=== PATIENT | female | born 1995 ===

== ENCOUNTER 2024-01-07 07:09 | Outpatient (CLI) | payer MEDICAID, SELFPAY ==
--- NOTE | 2024-01-07 07:15 | CRLHL7_ITS ---
For Patients: As a result of the Cures Act, medical imaging exams and procedure reports are released immediately into your electronic medical record. You may view this report before your referring provider. If you have questions, please contact your health care provider. INDICATION: First trimester scan, establish dates. COMPARISON: None. TECHNIQUE: Real-time blandon-scale imaging of the pelvis was performed. FINDINGS: Sonographic imaging demonstrates a single living intrauterine gestation. The embryo demonstrates a regular cardiac rate measuring 157 beats per minute. The embryo`s crown-rump length measurement of 3.7 cm corresponds to a gestational age of 10 weeks 4 days with a sonographic due date of 07/31/2024. There is a normal-appearing yolk sac. There are no gross abnormalities noted within the embryo at this early state of development. The gestational sac has a normal appearance. There is no evidence of a perigestational hemorrhage. The amount of fluid within the sac appears appropriate for gestational age. The cervix is closed. The myometrium appears normal. The ovaries are not visualized. There are no suspicious fluid collections noted in the cul-de-sac. IMPRESSION: Single living intrauterine with sonographic gestational age 10 weeks 4 days and sonographic due date of 07/31/2024. Dictated by Ayad Pires MD @ 01/07/2024 11:45:33 AM (Electronically Signed)
== END 2024-01-07 07:10 | disposition home or self-care (01) ==
LOC: US 07:12
PROVIDERS: Visit Provider Advanced Practice Midwife
DX: Z34.91 Encounter for supervision of normal pregnancy, unspecified, first trimester (principal); Z3A.10 10 weeks gestation of pregnancy
CPT/HCPCS: 76817; 86592; 86703; 86704; 86706; 86762; 86787; 86803; 86850; 86900; 86901; 87086; 87186; 87340; T1013

== ENCOUNTER 2024-02-04 09:24 | Outpatient (CLI) | payer BC, SELFPAY | END 2024-02-04 09:25 | disposition home or self-care (01) | LOC: NFLDREF 09:26 | PROVIDERS: Visit Provider Obstetrics & Gynecology | DX: O23.42 Unspecified infection of urinary tract in pregnancy, second trimester (principal) | CPT/HCPCS: 87086; 87186 ==

== ENCOUNTER 2024-02-19 11:52 | Outpatient (CLI) | payer BC, SELFPAY | END 2024-02-19 11:53 | disposition home or self-care (01) | PROVIDERS: Visit Provider Obstetrics & Gynecology | DX: O23.40 Unspecified infection of urinary tract in pregnancy, unspecified trimester (principal) | CPT/HCPCS: 87086 ==

== ENCOUNTER 2024-03-03 08:14 | Outpatient (CLI) | payer BC, SELFPAY ==
--- NOTE | 2024-03-03 08:15 | CRLHL7_ITS ---
For Patients: As a result of the Century Cures Act, medical imaging exams and procedure reports are released immediately into your electronic medical record. You may view this report before your referring provider. If you have questions, please contact your health care provider. INDICATION: Evaluate anatomy. COMPARISON: 01/07/2024 TECHNIQUE: Real time blandon scale imaging of the fetus was performed as well as color Doppler analysis of the umbilical vessels. FINDINGS: Sonographic imaging demonstrates a single living intrauterine gestation. Fetus demonstrates a regular cardiac rate of 139 beats per minute. Fetus has a breech position. The placenta lies anteriorly without evidence of placenta previa. Edge of the placenta 6.5 cm from the internal cervical os. Amniotic fluid volume appears normal. Single deepest vertical pocket: 4.9 cm. The cervix is closed and measures 3.3 cm in length. The composite ultrasound gestational age is calculated at 18 weeks 3 days with an estimated sonographic due date of 08/01/2024. The estimated weight is 243 grams which lies at the 41st %. The following biometric measurements were obtained: Biparietal diameter: 4.0 cm/18 weeks 1 day 32nd% Head circumference: 15.0 cm/18 weeks 1 day 20th% Abdominal circumference: 13.4 cm/18 weeks 6 days 56th% Femur length: 2.7 cm/18 weeks 2 days 32nd% The HC/AC ratio measures: 1.12 range (1.08-1.27) On anatomic survey, there is a normal appearance of the cerebral ventricles, cavum septi pellucidi, cisterna magna and cerebellum. The nose, lips, and facial profile appear normal. The cervical, thoracic and lumbar spine are well visualized and appear normal. There is a normal four-chamber heart view. Normal LVOT. Incomplete visualization of the RVOT. The diaphragm and stomach appear normal. The kidneys and bladder also appear normal. There is a normal three-vessel cord and cord insertion site. The four extremities appear normal. IMPRESSION: Incomplete visualization of the RVOT. Short-term follow-up recommended. Dictated by Ayad Pires MD @ 03/04/2024 9:01:19 AM (Electronically Signed)
== END 2024-03-03 08:15 | disposition home or self-care (01) ==
LOC: US 08:14
PROVIDERS: Visit Provider Obstetrics & Gynecology
DX: Z34.92 Encounter for supervision of normal pregnancy, unspecified, second trimester (principal); Z3A.18 18 weeks gestation of pregnancy
CPT/HCPCS: 76805; T1013

== ENCOUNTER 2024-03-17 09:06 | Outpatient (CLI) | payer BC, SELFPAY ==
--- NOTE | 2024-03-17 09:15 | CRLHL7_ITS ---
For Patients: As a result of the Century Cures Act, medical imaging exams and procedure reports are released immediately into your electronic medical record. You may view this report before your referring provider. If you have questions, please contact your health care provider. INDICATION: f/u heart views, RVOT COMPARISON: 03/03/2024 TECHNIQUE: Real-time blandon-scale imaging of the pelvis was performed. FINDINGS: LVOT, three-vessel view, RVOT, four-chamber view and three-vessel trachea view are normal. heart rate 129 beats per minute. Stomach normal. Normal kidneys and bladder. Vertex position. Cervix is closed measuring 4.5 cm. Single deepest pocket 5.1 cm. IMPRESSION: Normal heart views. Dictated by Ayad Pires MD @ 03/17/2024 10:45:10 AM (Electronically Signed)
== END 2024-03-17 09:07 | disposition home or self-care (01) ==
LOC: US 09:12
PROVIDERS: Visit Provider Obstetrics & Gynecology
DX: Z36.89 Encounter for other specified antenatal screening (principal)
CPT/HCPCS: 76816; T1013

== ENCOUNTER 2024-04-30 20:35 | Outpatient (CLI) | payer BC, SELFPAY ==
[2024-04-30 20:04] VITALS: BP 109/73; PULSE 93; RESP 16; TEMP 36.4; O2SAT 97; BMI 26.5
[2024-04-30 20:47] VITALS: PULSE 83; O2SAT 99
[2024-04-30 20:52] VITALS: PULSE 93; O2SAT 99
[2024-04-30 20:53] VITALS: BP 103/62; PULSE 89; RESP 16; TEMP 36.8
[2024-04-30 20:56] LABS: Appearance Urine Clear (Clear); Bilirubin Urine Negative (Negative); Blood Urine Negative (Negative); Color Urine Yellow (Yellow); Glucose Urine Negative (Negative); Ketones Urine Negative (Negative); Leukocyte Esterase Urine 1+ (Negative); Nitrite Urine Negative (Negative); Protein Urine Negative (Negative); Specific Gravity Urine 1.015 (1.000-1.030); Urobilinogen Urine 0.2 (0.2-1.0)
[2024-04-30 20:57] VITALS: PULSE 91; O2SAT 98
[2024-04-30 21:03] LABS: Amnisure Rom* Negative
[2024-04-30 21:16] LABS: Bacteria Urine Few; RBC Urine 0-2 (0-2); Squamous Epithelial Cell Urine Few (None-Few); WBC Urine 0-2 (0-5)
[2024-04-30 21:17] LABS: Clue Cells <20% Clue Cells Seen (None Seen); Trichomonas No Trichomonas Seen (None Seen); Yeast No Yeast Seen (None Seen)
[2024-04-30] MEDS: ACETAMINOPHEN 500 MG TABLET 1000 MG PO (21:51)
[2024-04-30 21:58] LABS: Bacterial Vaginosis* POSITIVE (Negative); Candida glab/krus NOT DETECTED (No Detected); Candida species DETECTED (No Detected); Trichomonas vaginalis NOT DETECTED (No Detected)
--- NOTE | 2024-04-30 22:13 | PC.OBNST ---
NST Note NST Note Start: 04/30/24 20:33 Freq: ONCE Status: Active Protocol: Document 04/30/24 20:33 BRM (Rec: 04/30/24 22:13 BRM Desktop) NST Note 3 Para (# of births) 1 EDC 07/31/24 Gestational Age In Weeks & Days 26 Weeks & 6 Days Patient Presented with Complaint(s) of Contractions/cramping,Pain Other Complaints presents with cramping and abdominal pain x 3 days. Feels like baby is going to fall out. Reactive Yes Appropriate for Gestational Age Yes RN Cristiano Loomis RN Date 04/30/24 Reactive Yes Appropriate for Gestational Age Yes RONALD Hernandez RN Date 04/30/24 OB NST charge Yes Complete NST Note via Write Note Yes The provider's electronic signature indicates the NST is reactive/appropriate for gestational age. *Note to provider: If an addendum is required, open the patient's chart and click on the note under the Nurse/Allied Health tab.
== END 2024-04-30 22:00 | disposition home or self-care (01) ==
LOC: OB OUT 20:36 → OB 20:36
PROVIDERS: Obstetrics & Gynecology; Visit Provider Family Medicine
DX: O47.02 False labor before 37 completed weeks of gestation, second trimester (principal); Z3A.26 26 weeks gestation of pregnancy
CPT/HCPCS: 59025; 81001; 81003; 81513; 84112; 87086; 87210; 87481; 87661; G0463; A9270

== ENCOUNTER 2024-05-13 09:48 | Outpatient (CLI) | payer BC, SELFPAY | END 2024-05-13 09:49 | disposition home or self-care (01) | LOC: NFLDREF 09:48 | PROVIDERS: Visit Provider Obstetrics & Gynecology | DX: Z34.93 Encounter for supervision of normal pregnancy, unspecified, third trimester (principal); Z3A.28 28 weeks gestation of pregnancy | CPT/HCPCS: 86592; 86850; T1013; J2791 ==

== ENCOUNTER 2024-07-08 15:40 | Outpatient (CLI) | payer BC, SELFPAY | END 2024-07-08 15:41 | disposition home or self-care (01) | LOC: NFLDREF 07-12 03:17 | PROVIDERS: Visit Provider Obstetrics & Gynecology | DX: Z34.83 Encounter for supervision of other normal pregnancy, third trimester (principal) | CPT/HCPCS: 87081; 87653 ==

== ENCOUNTER 2024-07-29 05:32 | Inpatient (IN) | payer BC, SELFPAY ==
[2024-07-29] VITALS (31 sets, daily range): BP systolic 89–135; BP diastolic 45–75; PULSE 65–90; RESP 15–19; TEMP 36.3–36.9; O2SAT 95–100; BMI 30.5
[2024-07-29] MEDS: LACTATED RINGERS 1000 ML 1,000 ML 1100 ML IV (06:34)
[2024-07-29 06:39] LABS: Basophils Absolute Auto 0.01 K/uL (0.00-0.30); Basophils Percent Auto 0.1 % (0.0-3.0); Eosinophils Absolute Auto 0.17 K/uL (0.00-0.50); Eosinophils Percent Auto 1.9 % (0.0-7.0); Hematocrit 36.2 % (33.0-51.0); Hemoglobin* 12.2 gm/dL (12.0-16.0); Immature Granulocytes Abs Auto 0.09 K/uL (0.00-0.30); Lymphocytes Absolute Auto 2.83 K/uL (0.90-2.90); Lymphocytes Percent Auto 31.5 % (20-44); Mean Corpuscular HGB Conc 34 gm/dL (32-36); Mean Corpuscular Hemoglobin 30 pg (26-34); Mean Corpuscular Volume 89 fL (80-100); Monocytes Percent Auto 8.8 % (0.0-11.0); Neutrophils Absolute Auto 5.08 K/uL (1.7-7.0); Neutrophils Percent Auto 56.7 % (42.0-72.0); Platelet Count* 261 K/uL (140-440); RDW Coefficient of Variation % 13.1 % (11.5-15.5); Red Blood Count 4.05 m/uL (4.00-5.20); White Blood Count* 8.97 K/uL (4.50-11.00)
[2024-07-29 06:40] LABS: Slide Review Reflex No
[2024-07-29] MEDS: LACTATED RINGERS 1000 ML 1,000 ML 120 ML IV (07:02)
--- NOTE | 2024-07-29 07:17 | W.PM.LDBA ---
Subjective History of Present Illness Narrative: Patient is being admitted to Labor and Delivery for repeat . She is a 28 year old -0-1-1 woman at 39 5/7 weeks gestation. Her full history and physical was dictated by Dr. Castro on 07/20. Please see this for details. [] Specific Issues/Plans Partner: Tim? Daughter: Giana Baby: Boy Jake H&P:? 07/20 # Hx of emergency C/S with vertical skin incision? Abdominal trauma --> SROM at 8.5 months. Undocumented uterine scar; presume low transverse given gestational age at delivery Desires repeat ; scheduled for 07/30/23 at 39 5/7 weeks #?RH negative Rhogam recommended at 28 weeks #?Hx of retained products with D&C after first delivery # UTI in on 02/04/2024 ROBBIE on 02/19/24: <10,000 gram negative rods # Varicella non-immune, recommend vaccine PP # GBS positive. No antibiotic allergies ? Imaging:??? 01/07/2024: CRL 10 weeks, 4 days, with sonographic MEERA 07/31/2024. 03/03/2024: Anterior placenta without previa, normal fluid, EFW 41%, AC 56%, all growth parameters within normal ranges. Incomplete visualization of RVOT. Otherwise normal anatomy. 03/17/2024: Normal heart views Vaccinations:?? COVID: 02/03 Flu: 02/03 Tdap: 06/24/24? RSV: N/A Last pap:? 06/20 NILM, neg HPV? OB - Problem Based A/P Additional Plan (1) : Status: Acute (2) Hx of emergency section: Status: Acute Plan Elective repeat today. Delivery/Labor/Induction Plan Plan: Section OB Exam Physical Exam Vital signs: Temp Pulse BP 98.4 F 90 106/69 07/29/24 06:02 07/29/24 06:02 07/29/24 06:02 Narrative: Physical exam: General: No acute distress Psych: Alert and oriented x3, full affect HEENT: Normocephalic, atraumatic Heart: Regular rate and rhythm, no murmur rub or gallop Lungs: Clear to auscultation bilaterally Abdomen: soft, nontender, gravid, cephalic lie
[2024-07-29] MEDS: CEFAZOLIN 2 GM INJ IVP (07:38)
[2024-07-29] MEDS: KETOROLAC 30 MG/ML inj IVP ×3 (08:23→20:27)
--- NOTE | 2024-07-29 08:54 | P.ANES_ITS ---
Anesthesia Charges Start Date/Time Anesthesia Start Date: 07/29/24 Anesthesia Start Time: 07:18 Stop Date/Time Anesthesia Stop Date: 07/29/24 Anesthesia Stop Time: 08:50 Coding CPT Codes CPT Codes: ANESTH CS DELIVERY - 60192 ([id number]) P2 - PATIENT W/MILD SYST DISEASE, QK - ECONOMIC DEVELOPMENT COORDINATOR 2-4 CNCRNT ANES PROC, QX - MANAGER STATISTICS SVC W/ MD MED DIRECTION
--- NOTE | 2024-07-29 08:54 | PM.OBPRCCS ---
Procedure Date of procedure: 07/29/24 Pre-op diagnosis: Previous 39 5/7 weeks' gestation Post-op diagnosis: same Procedure Done: Global Will [facility] bill your pro fee for this procedure?: Yes Blood Loss Measurement Type: QBL (474) Bakri Used: No IV fluids (mL): 1,000 Urine Output (mL): 300 Surgeon: Estrella Castro MD Anesthesia Type: Spinal Findings: 1. Male , cephalic OPP presentation, Apgars of 9 and 9, weight 6 lb, 13 oz 2. Normal appearance of uterus, bilateral tubes and ovaries Procedure Name: Repeat delivery Procedure Description: PROCEDURE IN DETAIL: Patient was taken to the operating room with IV running. She received cefazolin in preoperative prophylaxis. Spinal anesthesia was administered. Queen catheter was inserted. She was prepped and draped in the usual sterile fashion. Anesthesia was tested and found to be adequate. A low-transverse skin incision was made with a scalpel and carried through to the underlying layer of fascia with the scalpel. The subcutaneous fat was dissected off the underlying fascia with Bovie. The fascia was nicked in the midline with a scalpel, and this incision was extended laterally with scissors. The rectus muscles were in the midline. Peritoneum was identified and entered bluntly. Bovie was used to widen this opening laterally. Joey O retractor was inserted and tightened down, providing excellent visualization of the lower uterine segment. The bladder reflection was found to be well below the planned site for hysterotomy. Low-transverse uterine incision was made with a scalpel. Incision was widened bluntly. The 's head was grasped through the hysterotomy and delivered with the help of fundal pressure. The remainder of the body delivered without incident. Cord was clamped and cut after 30 seconds. was handed off to attending nurses. Cord blood was collected. The placenta was delivered with gentle traction on the cord. The uterus was cleaned of all clots and debris with the dry lap pad. The hysterotomy was reapproximated with 0 Vicryl in a running, locked fashion. There was a slight extension along the left edge of the hysterotomy that required additional sutures. The bladder was bluntly dissected downwards a bit further to accommodate this repair. The adnexa were examined and noted to be normal in appearance. The cul-de-sac and gutters were cleansed with dampened laparotomy sponge, removing any further clots and debris. The Joey O retractor was removed. The hysterotomy was reexamined and found to be hemostatic. The peritoneum was reapproximated with 2 0 Vicryl in a running fashion. The rectus muscles were examined and found to be hemostatic. The fascia was reapproximated with 0 Vicryl in a running fashion. Subcutaneous fat was irrigated and Bovie used on oozing vessels. The subcutaneous fat was reapproximated with 2 0 plain gut suture in an interrupted fashion. The skin was closed with a subcuticular stitch of 4-0 Vicryl. Surgical glue was applied above this. Patient tolerated procedure well was taken to recovery area in stable condition. Complications: none Pathology: none sent Surgery Debrief Performed: Yes Surgery Debrief Comment: Postoperative debrief was verbalized with OR staff, including a verification of pathology specimens to be sent as described above. Condition: stable Disposition: floor [place] total score - 1 minute: 9 total score - 5 minute: 9
--- NOTE | 2024-07-29 08:54 | W.ANESCHARGE ---
Anesthesia Charges Start Date/Time Anesthesia Start Date: 07/29/24 Anesthesia Start Time: 07:18 Stop Date/Time Anesthesia Stop Date: 07/29/24 Anesthesia Stop Time: 08:50 Coding CPT Codes CPT Codes: ANESTH CS DELIVERY - 36105 ([id number]) P2 - PATIENT W/MILD SYST DISEASE, QK - ANIMATED CARTOONS PAINTER 2-4 CNCRNT ANES PROC, QX - SERVICE MECHANIC SVC W/ MD MED DIRECTION
--- NOTE | 2024-07-29 08:58 | P.ANES_ITS ---
Anesthesia Charges Start Date/Time Anesthesia Start Date: 07/29/24 Anesthesia Start Time: 07:18 Stop Date/Time Anesthesia Stop Date: 07/29/24 Anesthesia Stop Time: 08:50 Coding CPT Codes CPT Codes: ANESTH CS DELIVERY - 85354 ([id number]) P2 - PATIENT W/MILD SYST DISEASE, QK - CASHIER OR CHECKER STOCK CLERK 2-4 CNCRNT ANES PROC, QX - FACING BASTER JUMPBASTING SVC W/ MD MED DIRECTION
--- NOTE | 2024-07-29 08:58 | W.ANESCHARGE ---
Anesthesia Charges Start Date/Time Anesthesia Start Date: 07/29/24 Anesthesia Start Time: 07:18 Stop Date/Time Anesthesia Stop Date: 07/29/24 Anesthesia Stop Time: 08:50 Coding CPT Codes CPT Codes: ANESTH CS DELIVERY - 05971 ([id number]) P2 - PATIENT W/MILD SYST DISEASE, QK - BANQUET LINE COOK 2-4 CNCRNT ANES PROC, QX - WELL SERVICE PUMP EQUIPMENT OPERATOR SVC W/ MD MED DIRECTION
--- NOTE | 2024-07-29 08:59 | W.PM.NB ---
Nerve Block Nerve Block Time Seen by Provider: 08:40 Date Seen: 07/29/24 Type of block requested by surgeon for post-operative analgesia: TAP Side: bilateral Time out performed: Yes Verification of patient name: Yes Verification of date of : Yes Site marking: site marked Name of person performing procedure: Caroline Ayala Continuous monitoring Was continuous monitoring of O2 sat, B/P, cardiac nurse practitioner, recorded every 15 minutes?: Yes Procedure Checklist: sterile prep, needles and gloves Ultrasound guided. Images saved: Yes Medications given in 5ml increments after negative aspiration: Marcaine %: 0.25 mL: 30 Needle gauge: 20 and Exparel mL: 10 Needle gauge: 20 Patient tolerated procedure well: Yes Block Charges Block Charge (with Pro Fee): TAP Bilateral Use of Ultrasound Machine for Block: Yes- US Guidance/pain block
[2024-07-29] MEDS: ONDANSETRON 2 MG/ML inj 4 MG IVP (14:22)
[2024-07-30] VITALS (9 sets, daily range): BP systolic 89–94; BP diastolic 54–60; PULSE 79–83; RESP 16–18; TEMP 36.9–37; O2SAT 98–99
[2024-07-30] MEDS: KETOROLAC 30 MG/ML inj IVP ×3 (02:32→16:16)
[2024-07-30] MEDS: DOCUSATE SODIUM 100 MG CAPSULE PO (08:39)
[2024-07-30] MEDS: FERROUS SULFATE 325 MG TABLET PO (08:57)
--- NOTE | 2024-07-30 09:39 | P.OBPN_ITS ---
OB - PN:Subj Subjective Time Seen by Provider: 09:39 Date Seen: 07/30/24 Interval history: Patient is 28 y/o admitted to Labor and Delivery for repeat on 07/29/24 at 39 5/7 weeks gestation. She had an uncomplicated repeat CD with QBL of 474. Narrative: Assessment conducted with in-person security operations engineer. Overnight patient had no complaints. Her pain is well controlled on oral pain medications. She is tolerating a regular diet. She has passed flatus. She is not ambulating without difficulty. Patient had 1 episode of emesis 2 hours after her CD and was scared to get up overnight. Reports that her n/v has completely resolved and she's had multiple meals without issues. Reassured patient that ambulating will expedite her recovery and prevent postoperative complications. Lochia is scant. She is urinating with khan. Has been unable to DC Khan due to patient not willing to ambulate. Patient denies chest pain, SOB, n/v, headache, RUQ pain, vision changes, dizziness. OB - PN: Obj Exam Physical Exam: Vital signs: Temp Pulse Resp BP Pulse Ox O2 Del Method 98.5 F 81 16 94/60 99 Room Air 07/30/24 08:46 07/30/24 08:46 07/30/24 08:46 07/30/24 08:46 07/30/24 08:46 07/30/24 08:46 Narrative: Physical exam: General: No acute distress Psych: Alert and oriented x4, full affect HEENT: Normocephalic, atraumatic Heart: Regular rate and rhythm, no murmur rub or gallop Lungs: Clear to auscultation bilaterally Abdomen: Normoactive bowel sounds, soft, no tenderness, rebound, or guarding Incision(s): Appropriately tender to palpation. Clean, dry, and intact. No erythema, induration, or abnormal discharge/breakdown Skin: No lesions or rashes Lower extremities: SCDs in place. No edema or erythema Pelvic exam: Scant lochia OB - PN: Obj Data Labs Labs: Laboratory Results - last 24 hr 07/29/24 07/30/24 06:23 06:23 Hgb 9.0 L Screen Negative OB - PN: A/P Delivery Assessment and Plan (1) Hx of emergency section: Status: Acute (2) Acute blood loss anemia: Status: Acute (3) S/P section: Status: Acute Plan Postoperative/post delivery Review: - Admitted for: Schedule repeat delivery - Surgical procedure: Repeat delivery - Skin incision: Pfannenstiel - Closure: sutures - QBL: 475 mL - Intraoperative Complications: none Acute blood loss anemia - VSS - Urine output: adequate - Preop/pre delivery Hgb: 12.2 gm/dL - Postop/post delivery Hgb: 9.0 gm/dL Postoperative care: - Diet: Advance as tolerated - Fluid: Encourage oral intake - Activity: Encourage ambulation and incentive spirometry - Pain: Acetaminophen, Ibuprofen, and oxycodone - DVT prophylaxis: SCDs and TEDs when not ambulating. Dispo: Patient is POD#1. Need the following milestones: ambulating and Khan removal. Anticipate discharge POD#2.
[2024-07-30 13:20] LABS: Rapid Plasma Reagin (RPR) Non Reactive (Non Reactive)
[2024-07-30] MEDS: SODIUM CHLORIDE 0.9 % (FLUSH) 10 ML SYRINGE IVF (16:16)
[2024-07-30] MEDS: ACETAMINOPHEN 500 MG TABLET 1000 MG PO (20:44)
[2024-07-31 00:02] VITALS: BP 100/67; PULSE 69; RESP 18; TEMP 36.8
[2024-07-31] MEDS: IBUPROFEN 600 MG TABLET PO ×2 (00:05→08:40)
[2024-07-31] MEDS: ACETAMINOPHEN 500 MG TABLET 1000 MG PO ×2 (03:22→12:28)
[2024-07-31 08:15] VITALS: BP 94/59; PULSE 72; RESP 14; TEMP 36.3; O2SAT 98
[2024-07-31] MEDS: DOCUSATE SODIUM 100 MG CAPSULE PO (08:41)
--- NOTE | 2024-07-31 10:15 | P.DS_ITS ---
DS: Providers Provider Time Seen by Provider: 10:15 Date Seen: 07/31/24 Date of admission: 07/29/24 05:32 Primary care physician: Not a Local Provider Admitting Clinician: Estrella Castro MD Consults: 07/29/24 06:16 Consult to Heavy Mobile Equipment Operator [CONS] Routine Comment: Reason for Consult:: Server Needed Attending Physician on discharge: Estrella Castro MD Date of Discharge: 07/31/24 DS: Diagnosis Discharge Diagnosis (1) S/P section: Status: Acute (2) Acute blood loss anemia: Status: Acute Exam Narrative: Exam Narrative: Physical exam: General: No acute distress Psych: Alert and oriented x4, full affect HEENT: Normocephalic, atraumatic Heart: Regular rate and rhythm, no murmur rub or gallop Lungs: Clear to auscultation bilaterally Abdomen: Soft, no tenderness, rebound, or guarding. Fundus firm 2 cm below umbilicus. Incision(s): Appropriately tender to palpation. Clean, dry, and intact. No erythema, induration, or abnormal discharge/breakdown Skin: No lesions or rashes Lower extremities: No edema or erythema Pelvic exam: Scant lochia Const: Vital Signs, click to edit/add: Vital Signs - 24 hr 07/30/24 16:09 07/31/24 00:02 07/31/24 08:15 Temperature 98.4 F 98.2 F 97.3 F L Pulse Rate [Pulse Oximeter] 83 69 72 Respiratory Rate 16 18 14 Blood Pressure [Ri ght Arm] 89/54 L 100/67 94/59 L Pulse Oximetry 98 98 Oxygen Delivery Me thod Room Air Room Air Room Air OB - DS: Summary Hospital Course Hospital Course: The patient is a 28 year old G3 P 1011 at 39.5 weeks gestation that was admitted to the Center on 07/29/24 for scheduled repeat CD. She had an uncomplicated delivery. She delivered a viable male infant. She is . the patient has done well. Overnight patient had no complaints. Her pain is well controlled on oral pain medications. She is tolerating a regular diet. She has passed flatus and had a bowel movement. She is ambulating without difficulty. Lochia is scant. She is urinating without khan. Patient denies chest pain, SOB, n/v, headache, RUQ pain, vision changes, dizziness. Peripartum Data Procedures: Procedures Operation Date: 07/29/24 07:15 Actual Procedure Side Surgeon p Repeat Section Not Applicable Estrella Castro MD [place] Gender: Male Time Spent with Patient Time attestation: Total time spent providing and/or coordinating discharge services: Discharge Plan Discharge Disposition: Home, Self-Care Date of Admission: 07/29/24 05:32 Attending Provider on Discharge: Sonja Medrano Primary Care Provider: Provider,Not a Local Condition: Stable Anticipated Discharge Date/Time: 07/31/24 08:46 Discharge Medications: New acetaminophen 500 mg Tablet 1,000 mg PO Q6H PRN (Reason: Pain) 30 Days Qty: 60 0RF ferrous sulfate 325 mg (65 mg iron) Tablet 325 mg PO Q48H 30 Days Qty: 15 0RF docusate sodium 100 mg Capsule 100 mg PO DAILY 30 Days Qty: 30 0RF ibuprofen 600 mg Tablet 600 mg PO Q6H PRN (Reason: Pain) 30 Days Qty: 60 0RF Lanolin (HPA) 100 % Cream 1 applic topical Q1H PRNQty: 7 1RF simethicone 80 mg Tablet,Chewable 80 - 160 mg PO Q4H PRN (Reason: Gas) 30 Days Qty: 30 0RF oxycodone 5 mg Tablet 5 mg PO Q6H PRN (Reason: Pain) 14 Days Qty: 15 0RF polyethylene glycol 3350 [Miralax] 17 gram/dose powder 4 g PO DAILY Qty: 119 1RF Continued DHA 200 mg capsule 200 mg PO DAILY Qty: 90 3RF Discharge Orders: Discharge Order (Routine); Ordered 07/31/24 Ordered By: Sonja Medrano Consulting provider completed their portion of the discharge: Yes Patient Education: OB /Bottle Feeding Additional Instructions: POSTOPERATIVE INSTRUCTIONS ACTIVITY No heavy lifting/pushing/pulling for 4-6 weeks. Do not lift anything more than about 10-15 lbs (such as laundry, groceries, children, pets), vacuum, push heavy doors or grocery carts, etc. You may climb stairs as tolerated. Do not put anything in the vagina for 6 weeks after surgery unless otherwise instructed by your doctor (including tampons, douching, sexual intercourse, etc). No driving for about 2 weeks after surgery, while you are taking narcotic pain medication, or until you feel that you are ready. Practice checking your blind spot and stepping hard on the brake. Avoid sitting or lying in bed for more than 2 hours at a time while you are awake to reduce your risk of blood clots. You may return to work when directed by your physician. Please contact your doctor if you need any return to work letters or medical leave paperwork to be completed. WOUND CARE You will have one large incision on your abdomen. There will be dissolvable stitches under your skin that do not need to be removed. Shower daily after surgery. Clean your incision with mild antibacterial soap and water. Pat your incision dry with a clean towel. No tub baths until wound is completely healed. Wash your hands frequently, especially before touching your incision, changing any dressings, after using the restroom, and before eating. PAIN MANAGEMENT Take your oral pain medication as needed. You should be taking Ibuprofen 600mg every 6 hours with 1 gram of Tylenol every 6 hours. You can take these together every six hours or alternate them every 3 hours. You should then take the oxycodone as needed if you have breakthrough pain on top of the Tylenol and Ibuprofen. Some pain medications can cause constipation so you should take a stool softener (i.e. colace) while you are on these medications. You may also take milk of magnesia or Miralax for constipation. WHAT TO EXPECT AT HOME Recovery from surgery is generally 4-6 weeks, but sometimes longer for more strenuous activity. It is normal to be very tired during this time. It is normal to have some drainage or a small amount of vaginal bleeding after surgery which may last up to 6 weeks. You may go home with a khan catheter in your bladder. You will need to follow up for a nurse visit in 7-10 days for removal. You will most likely experience gas pain, abdominal swelling, or shoulder pain for 24-72 hours after surgery. A warm shower, heating pad, and/or walking may help. WHEN TO CALL YOUR DOCTOR : Fever (>100.4?F or 38.0?C) or chills. Incision problems such as redness, warmth, swelling, or foul smelling drainage. Severe nausea or persistent vomiting. Bright red vaginal bleeding (soaking >2 pad/hour) or foul smelling vaginal drainage. Severe pain not relieved with pain medication. Pain and swelling in your legs, especially if it is only on one side and not the other. Pain with urination, cloudy urine, or foul smelling urine. Difficulty in emotions, mood and functions Thoughts of hurting yourself and/or Painful, reddened area in your breast Any drainage, redness or tenderness in your IV/epidural site Severe headache that doesn't improve after taking medications Changes in vision, including temporary loss of vision, blurred vision, and/or light sensitivity Upper abdominal pain (usually under ribs on the right side) Or if you have any other problems or questions. CALL 911 OR GO TO THE EMERGENCY ROOM IF YOU HAVE: Any shortness of breath, difficulty breathing, or chest pain. - Follow up in 2-3 days for incision check - monitoring blood pressure at home twice daily in the morning and evening before taking blood pressure meds. - Follow Up: follow-up at 2 weeks and 6 weeks in clinic Follow Up Appointments: Provider,Not a Local [Primary Care Provider] - Forms: [facility] Info Instructions
== END 2024-07-31 13:45 | disposition home or self-care (01) | DRG 540 ==
PROVIDERS: Admitting Provider Obstetrics & Gynecology; Visit Provider Obstetrics & Gynecology
PROC: 10D00Z1 Extraction of Products of Conception, Low, Open Approach (ICD-10-PCS; CPT 59514; principal; 2024-07-29 07:15)
DX: O34.212 Maternal care for vertical scar from previous cesarean delivery (principal); Z3A.39 39 weeks gestation of pregnancy; Z37.0 Single live birth; G89.18 Other acute postprocedural pain; O99.824 Streptococcus B carrier state complicating childbirth; O26.893 Other specified pregnancy related conditions, third trimester; Z67.41 Type O blood, Rh negative; O90.81 Anemia of the puerperium; D62 Acute posthemorrhagic anemia; R11.2 Nausea with vomiting, unspecified; Z78.9 Other specified health status
CPT/HCPCS: 01961; 36415; 64488; 76942; 85018; 85025; 85461; 86592; 86850; 86900; 86901; 94761; T1013; A4314; A9270; J0665; J0666; J0690; J1100; J1885; J2274; J2371; J2405; J2590; J2791; J7120

== ENCOUNTER 2025-03-09 17:59 | Emergency (ER) | payer BC, SELFPAY ==
[2025-03-09 18:07] VITALS: BP 101/62; PULSE 82; RESP 18; TEMP 36.9; O2SAT 98; BMI 31.5
--- NOTE | 2025-03-09 18:12 | CRLHL7_ITS ---
For Patients: As a result of the Century Cures Act, medical imaging exams and procedure reports are released immediately into your electronic medical record. You may view this report before your referring provider. If you have questions, please contact your health care provider. Indication: Cough Comparison: None available. Technique: PA and lateral views of the chest Findings: There is no focal consolidation, effusion, or pneumothorax. The cardiomediastinal silhouette is within normal limits. The bony thorax is grossly intact. Impression: No acute cardiopulmonary abnormality. Dictated by Yonny Collins MD @ 03/09/2025 7:05:23 PM (Electronically Signed)
--- NOTE | 2025-03-09 18:46 | ED.GENADULT ---
HPI - General Adult General Chief complaint: Cough Stated complaint: unspecified complaint Time Seen by Provider: 03/09/25 18:11 Source: patient Mode of arrival: ambulatory Limitations: no limitations History of Present Illness HPI narrative: 29-year-old female, generally healthy patient, presents today with cough for 5 days. Patient believe she has been febrile but does not have a thermometer. Normal appetite. When she has a coughing spell she feels pain in her chest. She is not short of breath. Denies any rashes. No abdominal pain. Her son has similar symptoms. Related Data Previous Rx's ?Medication ?Instructions ?Recorded docosahexaenoic acid 200 mg 200 mg PO DAILY #90 caps 01/07/24 capsule ( DHA) acetaminophen 500 mg tablet 1,000 mg (2 x 500 mg) PO Q6H PRN 07/31/24 Pain 30 days #60 tabs docusate sodium 100 mg capsule 100 mg PO DAILY 30 days #30 caps 07/31/24 ferrous sulfate 325 mg (65 mg 325 mg PO Q48H 30 days #15 tabs 07/31/24 iron) tablet ibuprofen 600 mg tablet 600 mg PO Q6H PRN Pain 30 days #60 07/31/24 tabs polyethylene glycol 3350 17 4 g PO DAILY #119 grams 07/31/24 gram/dose oral powder (Miralax) Allergies Allergy/AdvReac Type Severity Reaction Status Date / Time No Known Drug Allergies Allergy Verified 03/09/25 18:07 Review of Systems Status of ROS: Reports: 10 or more systems reviewed and unremarkable except as noted in History and below [facility] Medical History UTI in , antepartum (01/07/24) ?O23.40 - Unspecified infection of urinary tract in , unspecified trimester (ICD-10) Bacterial vaginosis in (04/30/24) ?O23.599 - Infection of other part of genital tract in , unspecified trimester (ICD-10) ?B96.89 - Other specified bacterial agents as the cause of diseases classified elsewhere (ICD-10) Retained products of conception after delivery with complications ?O73.1 - Retained portions of placenta and membranes, without hemorrhage (ICD-10) No active medical problems Surgical History Hx of emergency section ?Z98.891 - History of uterine scar from previous surgery (ICD-10) H/O wisdom tooth extraction ?K08.409 - Partial loss of teeth, unspecified cause, unspecified class (ICD-10) Hx of dilation and curettage ?Z98.890 - Other specified postprocedural states (ICD-10) History of delivery ?Z98.891 - History of uterine scar from previous surgery (ICD-10) Family History Aunt Breast cancer Social History What is your current living situation?: I presently have a place to live Problems where you live: no known problems In the past 12 months, utilities in danger of being shut off: no In past 12 months, lack of transportation kept you from medical appts, meetings, work, or getting things needed for daily living: no In the past 12 mos, have been you worried that your food would run out before you had money to buy more?: never true In the past 12 mos, the food you bought just didn't last and you didn't have money to buy more?: never true Smoking Status: Never smoker How often does anyone, including family, friends and others, physically hurt you: never How often does anyone, including family, friends and others, insult or talk down to you: never How often does anyone, including family, friends and others, threaten you with harm: never How often does anyone, including family, friends and others, scream or curse at you: never Exam Narrative: Exam Narrative: Well-nourished well-developed patient in no acute distress. Alert and oriented. Answers questions appropriately. Mood and affect are appropriate. Thoughts are goal oriented and rational. No tangential or magical thinking noted. Patient speaks in full sentences without needing to catch her breath. HEENT: Normocephalic atraumatic. Pupils are equally round reactive to light. Extraocular muscles are intact. Conjunctivae are moist without any icterus noted. Moist mucous membranes. Posterior pharynx is normal. N Cardiovascular: Heart is regular rate and rhythm S1 and S2 are present without any murmurs. Lungs: Clear to auscultation bilaterally no wheezes rhonchi or rales are appreciated. Patient takes deep breaths without any discomfort. Skin: Well perfused without any obvious rashes. Const: Vital Signs, click to edit/add: Vital Signs - 24 hr 03/09/25 18:07 Temperature 98.4 F Pulse Rate [Pulse Oximeter] 82 Respiratory Rate 18 [facility] 101/62 Pulse Oximetry 98 Oxygen Delivery Me thod Room Air Course Course ED Course: Chest x-ray, read by me, does not show any acute infiltrates. Triple swab is pending at this time as they were having difficulty in the lab and patient had been here for over 2 hours. Vital Signs Vital signs: Initial Vital Signs Temperature 98.4 F 03/09/25 18:07 Temperature Source Temporal Artery Scan 03/09/25 18:07 Pulse Rate 82 03/09/25 18:07 Respiratory Rate 18 03/09/25 18:07 Blood Pressure 101/62 03/09/25 18:07 Blood Pressure Mean 75 03/09/25 18:07 Blood Pressure Position Sitting 03/09/25 18:07 Pulse Oximetry 98 03/09/25 18:07 Oxygen Delivery Method Room Air 03/09/25 18:07 Vital Signs Temperature 98.4 F 03/09/25 18:07 Pulse Rate 82 03/09/25 18:07 Respiratory Rate 18 03/09/25 18:07 Blood Pressure 101/62 03/09/25 18:07 Pulse Oximetry 98 03/09/25 18:07 Oxygen Delivery Method Room Air 03/09/25 18:07 Temperature 98.4 F 03/09/25 18:07 Pulse Rate 82 03/09/25 18:07 Respiratory Rate 18 03/09/25 18:07 Blood Pressure 101/62 03/09/25 18:07 Pulse Oximetry 98 03/09/25 18:07 Oxygen Delivery Method Room Air 03/09/25 18:07 Medical Decision Making MDM Narrative Medical decision making narrative: 29 year old with URI, cough. Discussed symptomatic treatment. COVID, influenza and RSV results are pending. This will not change her treatment as patient is young and healthy. We will call her if anything is positive. Imaging Data Chest x-ray: Attestation: I have reviewed the pertinent imaging results. Radiologist's impression: Technique: PA and lateral views of the chest Findings: There is no focal consolidation, effusion, or pneumothorax. The cardiomediastinal silhouette is within normal limits. The bony thorax is grossly intact. Impression: No acute cardiopulmonary abnormality. Discharge Plan Discharge Clinical Impression: URI (upper respiratory infection) Patient Disposition: Home, Self-Care Condition: Stable Instructions: Upper Respiratory Infection (ED) Additional Instructions: There was a lab error in getting the COVID, influenza and RSV results. If these are positive we will call you today. Otherwise continue symptomatic treatment with Tylenol as needed, [id number] cold medications as directed per the packaging. Make sure to stay well hydrated and get plenty of rest. Prescriptions: No Action DHA 200 mg capsule 200 mg PO DAILY Qty: 90 3RF acetaminophen 500 mg Tablet 1,000 mg PO Q6H PRN (Reason: Pain) 30 Days Qty: 60 0RF ferrous sulfate 325 mg (65 mg iron) Tablet 325 mg PO Q48H 30 Days Qty: 15 0RF docusate sodium 100 mg Capsule 100 mg PO DAILY 30 Days Qty: 30 0RF ibuprofen 600 mg Tablet 600 mg PO Q6H PRN (Reason: Pain) 30 Days Qty: 60 0RF polyethylene glycol 3350 [Miralax] 17 gram/dose powder 4 g PO DAILY Qty: 119 1RF Follow Up/Referrals: Provider,Not a Local [Primary Care Provider, Family Practice] Stand Alone Forms: MyHealth Info Instructions
[2025-03-09 20:44] LABS: PCR FLU A Negative PCR FLU A (Negative); PCR FLU B Negative PCR FLU B (Negative); PCR RSV Negative PCR RSV (Negative); SARS PCR* Negative SARS-CoV-2 (Negative)
== END 2025-03-09 20:23 | disposition home or self-care (01) ==
PROVIDERS: Emergency Provider Family Medicine
DX: J06.9 Acute upper respiratory infection, unspecified (principal)
CPT/HCPCS: 71046; 87631; 99283; 99284